=== PATIENT | male | born 1950 | race Caucasian/White ===

== ENCOUNTER → 2016-08-27 | Outpatient (CLI) | payer OTHER ==
[~2016-08-27] MED LIST: LEVAQUIN750 MG PO; NO MEDICATIONS; TEGRETOL PO; TYLOX 5/500 CAP1 CAP PO; VICODIN 5/500 T1 TAB PO; VICODIN PO
--- NOTE | ~2016-08-27 | MR112 ---
[facility] A Service of [facility] RADIOLOGY TEXT RESULTS PATIENT: CHARLES MEDRANO LOCATION: [facility] : 54 UNIT #: [id number] AGE: [address]: SOUMYA BERMAN APRN SEX: M ORDER DR: [id number] [facility] [address] [place], [place] [address] [id number] O MR#: [id number] Acc #: [id number] NAME: CHARLES MEDRANO : 1950 SEX: M STUDY DATE/TIME: 08/27/2016 18:27 UNIT: [facility] ROOM: STUDY DESCRIPTION: MR Lumbar WWo Contrast Attending Physician: Soumya Berman Aprn Referring Physician: Soumya Berman Aprn Ordering Physician: Soumya Berman Aprn Primary Care Physician: Javier Colon Pa-C MRI CENTER REPORT This report is preliminary unless electronic signature is present. EXAM MRI of the lumbar spine with and without. HISTORY Low-back pain for 25 years. No recent injury surgery. Surgery [id number]. Hunts to stand or walk. No history of cancer. COMMENT MRI of the lumbar spine performed prior to and following intravenous administration of 20 mL of MultiHance. Comparison none. The patient presumably has outside comparison studies, but I do not have access to films or report. There is grade 1 anterolisthesis of L3 on L4 and L4 on L5 measuring 2-3 mm at 3-4 and 4 mm of 4-5. The patient has had previous surgery including bilateral pedicle screws L3, L4, L5 with presumably vertical stabilization bars and a horizontal stabilization bar and there is also an intervertebral disc spacer at the 3-4 level. There is severe loss of intervertebral disc height at 3-4 and 4-5. Milder loss of disc height at 5-1. The conus medullaris terminates at L2 level and is normal. Marrow signal intensity is unremarkable where not obscured, allowing for some mild marrow endplate degenerative changes 3-4 and 4-5 levels. Disc desiccation from 3-4 through 5-1. At L1-2, there is mild facet degenerative change bilaterally with ligamentum flavum thickening. There is a minor broad-based posterior disc bulge. There is mild effacement of the thecal sac but no central canal stenosis. Mild foraminal narrowing. At L2-3, moderate facet degenerative change bilaterally with ligamentum flavum thickening. There is a mild posterior disc bulge. Very mild canal stenosis. No foraminal impingement. [facility]. [facility] A Service of [facility] RADIOLOGY TEXT RESULTS PATIENT: CHARLES MEDRANO LOCATION: [facility] : 54 UNIT #: [id number] AGE: [address]: SOUMYA BERMAN APRN SEX: M ORDER DR: At L3-4, postoperative changes. No recurrent extrusion is seen. Mild canal stenosis is present. There is impingement on the foramina bilaterally, [id number]-tz-ragsbwno on the left and ueowswnj-lx-sgobaf on the right, probably due to a combination of findings including facet hypertrophy and loss of disc height and some desiccated disc material in the inferior foramina. At L4-5, postoperative changes. Mild canal stenosis with mass effect on the right lateral recess. In part related to the anterolisthesis of 4 on 5. Again, there is foraminal narrowing rlyn-ik-cncrfpry on the left, more moderate on the right secondary to posterior element changes anterolisthesis of 4 on 5, loss of disc height, and some desiccated disc material, more apparent in the right side. Probably also some mass effect on the expected location of the right L4 root lateral to the foramen by disc osteophyte. At L5-S1, there is cdsbelkh-pl-cgismc facet arthritis bilaterally. There is a broad posterior protrusion with a more focal component to the left side, left npclnqszjj-cj-xlxwumrnvfabuo location. There is focal mass effect on the left lateral recess, expected location of the left S1 root but no central canal stenosis. Mild right and rbndsruc-yk-jiiief left-sided foraminal narrowing. Disc material in the inferior foramen contributes to this. Following contrast administration, no pathologic intracanalicular enhancement is seen. IMPRESSION 1. Prior fusion L3-L5 with anterolisthesis of L3 on L4 and L4 on L5, grade 1. 2. No recurrent disc extrusion is suspected at the postoperative 3-4 and 4-5 levels. 3. There is a small left paramedian to posterolateral protrusion/extrusion at the L5-S1 level impinging upon expected location of the left L5 root in the left lateral recess. There is also 5-1 foraminal impingement on the left. 4. Please refer to the comment section for a description of the foraminal compromise at 3-4 and 4-5 levels. Additionally, there is probably some mass effect on the expected location right L4 root lateral to the foramen. See full description of findings above. 5. No evidence for arachnoiditis. Dictated by... Amy Floyd M.D. THIS IS AN ELECTRONICALLY VERIFIED REPORT [facility] A Service of [facility] & [facility] RADIOLOGY TEXT RESULTS PATIENT: CHARLES MEDRANO LOCATION: [facility] : 54 UNIT #: [id number] AGE: [address]: SOUMYA BERMAN APRN SEX: M ORDER DR: Amy Floyd M.D. at 08/30/2016 7:20 PM GIO/wilver TD: 08/30/2016 11:54 JOB #: [id number] MRI CENTER REPORT Page 1 of 1 COPY
[2016-08-27 18:51] LABS: POC - CREATININE 1.07 mg/dL (0.64-1.27); POC - GFR >60.0 mL/min (>60)
== END | disposition home or self-care (01) ==
LOC: CMRI 17:26
PROVIDERS: Nurse Practitioner Family
DX: M62.50 Muscle wasting and atrophy, not elsewhere classified, unspecified site (principal); M43.16 Spondylolisthesis, lumbar region; M51.27 Other intervertebral disc displacement, lumbosacral region
CPT/HCPCS: 72158; 82565; A9577